=== PATIENT | female | born 1990 | race Caucasian/White ===

== ENCOUNTER 2017-12-28 00:31 | Day surgery (SDC) | payer SELFPAY ==
[2017-12-28] MEDS ORDERED: Ondansetron HCl/PF 4 MG/2 ML Vial IVP PRN (01:00)
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
== END 2017-12-28 01:25 | disposition left against medical advice (07) ==
LOC: L&D/OP 00:31
PROVIDERS: ATTEND Obstetrics & Gynecology
DX: O99.89 Other specified diseases and conditions complicating pregnancy, childbirth and the puerperium (principal); R10.9 Unspecified abdominal pain; Z53.21 Procedure and treatment not carried out due to patient leaving prior to being seen by health care provider; Z3A.00 Weeks of gestation of pregnancy not specified
CPT/HCPCS: 76815; 99282

== ENCOUNTER → 2018-01-20 | Day surgery (SDC) | payer SELFPAY ==
[2018-01-20 18:36] VITALS: BMI 27.4
== END ==
LOC: L&D/OP 17:34
PROVIDERS: ATTEND Obstetrics & Gynecology
DX: O99.89 Other specified diseases and conditions complicating pregnancy, childbirth and the puerperium (principal); K62.89 Other specified diseases of anus and rectum; Z79.899 Other long term (current) drug therapy; Z53.21 Procedure and treatment not carried out due to patient leaving prior to being seen by health care provider

== ENCOUNTER 2018-03-19 16:32 | Inpatient (IN) | payer SELFPAY ==
[2018-03-19 17:01] VITALS: BMI 30.2
[2018-03-19 19:28] LABS: Hemoglobin 11.6 g/dL (12.0-16.0); Mean Corpuscular HGB CONC 35.3 g/dL (32.0-36.0); Mean Corpuscular Hemoglobin 30.2 pg (27.0-31.0); Mean Corpuscular Volume 85.5 fl (81.0-99.0); Mean Platelet Volume 6.6 fL (7.4-10.4); Platelet Count 378 thou/uL (130-400); RBC Distribution Width 11.5 % (11.5-14.5); Red Blood Cell (RBC) Count 3.84 mill/uL (4.20-5.40); White Blood Cell (WBC) Count 10.4 thou/uL (4.8-10.8)
[2018-03-19 19:50] LABS: Acetaminophen Less than 6.0 mcg/mL (10.0-30.0); Alcohol Less than 10 mg/dL (Less than 10); Salicylate Less than 8.0 mg/dL (15.0-30.0)
[2018-03-19 20:08] LABS: HBSAB Concentration 0.39 mIU/mL; Hep B Surf AB Non-Reactive (NonReactive)
[2018-03-19 20:16] LABS: Syphilis Antibody Nonreactive (Nonreactive); Syphilis Antibody Index 0.04 S/CO (<1.00 Non-Reactive)
[2018-03-19 20:22] LABS: Bilirubin Negative (Negative); Blood, Urine Small (Negative); Clarity CLOUDY (Clear); Glucose, Urine (Dipstick) Negative (Negative); Leukocyte Large (Negative); Nitrite Positive (Negative); Protein, Urine (Dipstick) Trace mg/dL (Neg-Trace); Specific Gravity, Urine 1.024 (1.002-1.036); pH, Urine 6.5 (5.0-9.0)
[2018-03-19 20:24] LABS: Bacteria/HPF 4+ HPF (None Seen); Squamous Epithelial 0-3 HPF (0-3)
[2018-03-19 20:26] LABS: Pathc Cast-AUWi Flag 3.86 (0-2.49)
[2018-03-19 20:32] LABS: Amphetamine Detected (NotDetected); Barbiturates Screen Not Detected (NotDetected); Benzodiazepine Screen Not Detected (NotDetected); Cocaine Metabolite Screen Not Detected (NotDetected); Medtox Control Line Valid? VALID (VALID); Medtox Reader # READER 1; Methadone Not Detected (NotDetected); Methamphetamine Not Detected (NotDetected); Opiate Screen Not Detected (NotDetected); Oxycodone Screen Not Detected (NotDetected); Phencyclidine (PCP) Not Detected (NotDetected); THC/Cannabinoid Screen Not Detected (NotDetected); Tricyclic Screen Not Detected (NotDetected)
[2018-03-19 20:35] LABS: Trichomonas/HPF 1+ HPF (None Seen)
[2018-03-19 20:37] LABS: Hyaline Casts/LPF 0-3 HYALINE CAST LPF (0-3 Hyaline)
--- NOTE | 2018-03-19 20:41 | ULT ---
COMPLETE OB ULTRASOUND GREATER THAN 14 WEEKS. 03/19/18 HISTORY: 28-year-old female with history of uterine contractions. No care. Single viable intrauterine fetus is noted in cephalic presentation. Cervical length approximates 3.4 cm. Placenta is fundal. heart rate is 149 beats per minute. Amniotic fluid is within normal murray its with an SHADE of 10.7. ANATOMY: Visualized brain, four chamber heart, three vessel cord, stomach, bladder, kidneys, spine and e xtremity regions are unremarkable. BIOMETRY: BPD 7.1 cm - - 28 weeks, 4 days Head circumference 25.2 cm - - 27 weeks, 3 days Abdominal circumference 22.7 cm - - 28 weeks, 0 days Femur length 5.7 cm - - 29 weeks, 6 days IMPRESSION: Single viable intrauterine fetus at 28 weeks, 3 days with an EDC of 06/08/18. Estimated weight 1 254 grams. Normal amniotic fluid. POS: [facility]
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
== END 2018-03-19 21:05 | DRG 781 ==
LOC: L&D 16:32
PROVIDERS: ADMIT Obstetrics & Gynecology; ATTEND Obstetrics & Gynecology
DX: O98.313 Other infections with a predominantly sexual mode of transmission complicating pregnancy, third trimester (principal); O23.43 Unspecified infection of urinary tract in pregnancy, third trimester; Z88.0 Allergy status to penicillin; Z88.1 Allergy status to other antibiotic agents; Z3A.28 28 weeks gestation of pregnancy; A59.01 Trichomonal vulvovaginitis
CPT/HCPCS: 36415; 51701; 76805; 80306; 80307; 81003; 81015; 85027; 86706; 86762; 86780; 86850; 86870; 86886; 86900; 86901; 99285

== ENCOUNTER 2018-04-03 18:06 | Day surgery (SDC) | payer OTHER, SELFPAY ==
[2018-04-03 18:26] LABS: #Lymphocytes 2.1 thou/uL (1.20-3.40); #Monocytes 0.8 thou/uL (0.11-0.59); %Eosinophils 0.4 % (0.0-10.0); %Lymphocytes 19.4 % (21.0-51.0); %Neutrophils 73.2 % (42.0-75.0); Hemoglobin 11.1 g/dL (12.0-16.0); Mean Corpuscular HGB CONC 34.7 g/dL (32.0-36.0); Mean Corpuscular Hemoglobin 29.8 pg (27.0-31.0); Mean Corpuscular Volume 85.8 fl (81.0-99.0); Mean Platelet Volume 7.1 fL (7.4-10.4); Platelet Count 265 thou/uL (130-400); RBC Distribution Width 12.1 % (11.5-14.5); Red Blood Cell (RBC) Count 3.74 mill/uL (4.20-5.40); White Blood Cell (WBC) Count 10.9 thou/uL (4.8-10.8)
[2018-04-03 18:40] LABS: BHCG - Serum POSITIVE (NEGATIVE); Pregs Control Background? CLEAR/WHITE (CLR/WHITE); Pregs Control Bar Appear? YES (CONTROL BAR)
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
[2018-04-03 18:48] LABS: ALT (SGPT) 14 U/L (8-55); AST (SGOT) 15 U/L (5-34); Albumin 3.3 g/dL (3.5-5.0); Alkaline Phosphatase 70 U/L (40-150); Anion Gap 10 mmol/L (10-20); BUN (Urea Nitrogen) 7 mg/dL (7.0-18.7); Bilirubin, Total 0.5 mg/dL (0.2-1.2); CK (CPK) 75 U/L (29-168); Calc. Creatinine Clearance 0 mL/min (70-130); Calcium 9.3 mg/dL (7.8-10.44); Carbon Dioxide 23 mmol/L (22-29); Chloride 105 mmol/L (98-107); Estimated GFR-MDRD Greater than 90; Globulin 3.3 g/dL (2.4-3.5); Glucose 103 mg/dL (70-105); Magnesium 1.7 mg/dL (1.6-2.6); Potassium 3.9 mmol/L (3.5-5.1); Protein, Total 6.6 g/dL (6.0-8.3); Sodium 134 mmol/L (136-145)
--- NOTE | 2018-04-03 18:49 | PDOC.EVN ---
Event Note - Event Note Event Note: Past lab showed positive ampets...we will recollect urine. Needs GC/Chl, GBS. Dianelys send those now
[2018-04-03 18:50] VITALS: BP 112/54; TEMP 98.6; BMI 31.3
--- NOTE | 2018-04-03 19:13 | PDOC.EVN ---
Event Note - Event Note Event Note: Patient H&P revisited...very poor historian. Interviewed again with CHAY Ring in room. Patient is a Living5 (one IUFD at "8 mos"...born vaginal breech). No CS history. Patient does state Hx trich...confirmed on prior record review. Possible HX UTI. I will order cath UA as well
[2018-04-03 19:25] LABS: HIV (1/2) Antibody/Antigen Non-Reactive (NonReactive); HIV 1/2 INDEX 0.13 S/CO (<1.00)
[2018-04-03 19:32] LABS: Amphetamine Not Detected (NotDetected); Barbiturates Screen Not Detected (NotDetected); Benzodiazepine Screen Not Detected (NotDetected); Cocaine Metabolite Screen Not Detected (NotDetected); Medtox Control Line Valid? VALID (VALID); Medtox Reader # READER 4; Methadone Not Detected (NotDetected); Methamphetamine Not Detected (NotDetected); Opiate Screen Not Detected (NotDetected); Oxycodone Screen Not Detected (NotDetected); Phencyclidine (PCP) Not Detected (NotDetected); THC/Cannabinoid Screen Not Detected (NotDetected); Tricyclic Screen Not Detected (NotDetected)
--- NOTE | 2018-04-03 19:51 | PDOC.EVN ---
Event Note - Event Note Event Note: HIV negative...CMP OK, CBC ok. UTox negative. CX was closed per RN exam. FHTS Cat 1
[2018-04-03 19:53] LABS: Bacteria/HPF None Seen HPF (None Seen); Bilirubin Negative (Negative); Blood, Urine Negative (Negative); Clarity CLEAR (Clear); Glucose, Urine (Dipstick) Negative (Negative); Hyaline Casts/LPF 7-10 HYALINE CAST LPF (0-3 Hyaline); Leukocyte Trace (Negative); Nitrite Negative (Negative); Pathc Cast-AUWi Flag 2.47 (0-2.49); Protein, Urine (Dipstick) Negative (Neg-Trace); RBC/HPF None Seen HPF (0-3); Specific Gravity, Urine 1.008 (1.002-1.036); Urobilinogen 0.2 mg/dL (0.2-1.0); WBC/HPF None Seen HPF (0-3); pH, Urine 7.5 (5.0-9.0)
--- NOTE | 2018-04-03 20:05 | PDOC.EVN ---
Event Note - Event Note Event Note: Urine sample with no bacteruria, non significant findings. OK for release back to custody. No evidence Pyelo clinically, LOF, or true labor
[2018-04-05 11:34] LABS: Chlamydia by PCR DETECTED (NotDetected); GC by PCR DETECTED (NotDetected)
== END 2018-04-03 20:35 ==
LOC: ERS 18:06 → L&D/OP 18:21
PROVIDERS: ATTEND Obstetrics & Gynecology
DX: O47.03 False labor before 37 completed weeks of gestation, third trimester (principal); Z3A.36 36 weeks gestation of pregnancy; Z88.0 Allergy status to penicillin; Z88.1 Allergy status to other antibiotic agents; Z79.899 Other long term (current) drug therapy
CPT/HCPCS: 51701; 80053; 80306; 81003; 81015; 82550; 83735; 84703; 85025; 86850; 86870; 86886; 86900; 86901; 86922; 87077; 87081; 87186; 87389; 87491; 87591; 99284; 99285

== ENCOUNTER 2018-04-25 02:14 | Day surgery (SDC) | payer SELFPAY ==
[2018-04-25 03:07] VITALS: BP 133/76; TEMP 98
--- NOTE | 2018-04-25 04:28 | PDOC.LDHP ---
Addendum entered and electronically signed by Kaleigh Agarwal MD 04/25/18 06:20: Contacted [facility] and found out that there is a GC/CT that has been received from last week, but has not resulted. So will not repeat this at this time as the pt is not having vaginal discharge. Original Note: Labor and Delivery H&P Chief complaint: abdominal pain HPI: 31 y/o incarcerated (poor historian) @ 33.5 WGA by 28.3 wk sono presents due to abdominal pain, pelvic pressure, N/V, and constipation. The patient reports that over the past 2-3 days she has had nausea and vomiting and has had emesis after every meal. She has been unable to tolerate the warm water they have been giving her in [facility]. She reports constipation with her last BM being 3 days ago. She has been taking zofran for the nausea that hasn't been helping and then a stool softener for the constipation. She reports feeling lightheaded and dizzy over the past day or two, especially when she stands up. She reports that the pelvic pressure, back pain, and abdominal pain feels like labor to her. She feels like she is having contractions. She denies LOF, vaginal bleeding , vaginal d/c, and reports good movement. She denies headaches, vision changes, edema, dysuria. Current gestational age (weeks): 33 (33w5d) Due date: 06/08/18 Dating criteria: other (28w3d US) Grav: 9 (unsure) Para: 5 (unsure) OB History Details: Reports a pre-term that the did not live. Reports several SAB's Current complications: none Abnormal US findings: No Past Medical History: ADHD Current medications: pre- vitamins Previous surgical history: none Social history: tobacco use (1ppd for 15 years), drug use (marijuana and some other unknown substance early in ) - Physical Exam Vital signs reviewed and normal: yes General: NAD Heart: RRR Lungs: CTAB Abdomen: NTTP (L CVA tenderness, but pt reports chronic back pain in that area) Extremeties: no edema FHT: category 1, variability present [place] contractions every: none - Vaginal Exam cm dilated: 0 Effacement: 0% Station: -3 - OB Labs Blood type: A RH: negative Antibody Screen: positive HIV: negative RPR: negative HEPSAg: negative 1 hour GCT: unknown GBS: positive Urine drug screen: negative Rubella: immune - Assessment 1. Dehydration 2/2 vomiting 2. h/o GC/CT in - Plan -: 1. Dehydration 2/2 vomiting -1L LR bolus -Encourage PO hydration -Zofran prn nausea -Will check UA with possible CVA tenderness vs chronic back pain to r/o pyelo -Tylenol prn back pain 2. h/o GC/CT in -Will do ALEXA anticipate d/c after fluid bolus <Kaleigh Agarwal - Last Filed: 04/25/18 04:37> <Imelda Landon - Last Filed: 04/27/18 08:22> Allergies/Adverse Reactions: Allergies Allergy/AdvReac Type Severity Reaction Status Date / Time Cephalosporins Allergy Hives Verified 04/25/18 03:12 Penicillins Allergy Severe Verified 04/25/18 03:12 Hives Assessment/Plan: I personally evaluated the patient and discussed the management with Dr. Agarwal I agree with the History, Examination, Assessment and Plan documented above. <Imelda Landon - Last Filed: 04/27/18 08:22>
[2018-04-25] MEDS ORDERED: Lactated Ringer's 1,000 ML IV SCH (04:30)
[2018-04-25 05:41] LABS: Bilirubin Negative (Negative); Blood, Urine Negative (Negative); Clarity CLOUDY (Clear); Glucose, Urine (Dipstick) Negative (Negative); Leukocyte Trace (Negative); Nitrite Negative (Negative); Protein, Urine (Dipstick) Negative (Neg-Trace); Specific Gravity, Urine 1.009 (1.002-1.036); Urobilinogen 0.2 mg/dL (0.2-1.0)
[2018-04-25 05:44] LABS: Bacteria/HPF 2+ HPF (None Seen); Hyaline Casts/LPF 0-3 HYALINE CAST LPF (0-3 Hyaline); Pathc Cast-AUWi Flag 0.72 (0-2.49); RBC/HPF 0-3 HPF (0-3)
== END 2018-04-25 06:45 ==
LOC: L&D/OP 02:14
PROVIDERS: ATTEND Obstetrics & Gynecology
DX: O99.283 Endocrine, nutritional and metabolic diseases complicating pregnancy, third trimester (principal); O99.333 Smoking (tobacco) complicating pregnancy, third trimester; E86.0 Dehydration; Z88.1 Allergy status to other antibiotic agents; Z3A.33 33 weeks gestation of pregnancy
CPT/HCPCS: 81001; 87086; 96360; 96361; 99282

== ENCOUNTER 2018-05-23 18:23 | Day surgery (SDC) | payer SELFPAY ==
[2018-05-23 19:19] VITALS: BMI 35.9
[2018-05-23 19:29] VITALS: TEMP 97.9
[2018-05-23] MEDS ORDERED: Promethazine HCl 25 MG/ML VIAL IM/IV PRN (19:42)
[2018-05-23] MEDS ORDERED: Lactated Ringer's 1,000 ML IV SCH ×2 (19:45)
[2018-05-23 20:31] LABS: Bilirubin Negative (Negative); Blood, Urine Negative (Negative); Clarity CLEAR (Clear); Glucose, Urine (Dipstick) Negative (Negative); Leukocyte Negative (Negative); Nitrite Negative (Negative); Protein, Urine (Dipstick) Negative (Neg-Trace); Specific Gravity, Urine 1.011 (1.002-1.036); Urobilinogen 0.2 mg/dL (0.2-1.0)
[2018-05-23 20:32] LABS: #Basophils 0.1 thou/uL (0.0-0.2); #Lymphocytes 2.2 thou/uL (1.20-3.40); #Monocytes 0.7 thou/uL (0.11-0.59); #Neutrophils 6.5 thou/uL (1.40-6.50); %Basophils 0.5 % (0.0-1.0); %Eosinophils 0.3 % (0.0-10.0); %Lymphocytes 22.7 % (21.0-51.0); %Monocytes 7.7 % (0.0-10.0); %Neutrophils 68.8 % (42.0-75.0); Hemoglobin 11.8 g/dL (12.0-16.0); Mean Corpuscular HGB CONC 35.4 g/dL (32.0-36.0); Mean Corpuscular Hemoglobin 30.3 pg (27.0-31.0); Mean Corpuscular Volume 85.6 fL (78.0-98.0); Mean Platelet Volume 7.8 fL (7.4-10.4); Platelet Count 239 thou/uL (130-400); RBC Distribution Width 12.7 % (11.5-14.5); White Blood Cell (WBC) Count 9.5 thou/uL (4.8-10.8)
[2018-05-23 20:33] LABS: Bacteria/HPF None Seen HPF (None Seen); Hyaline Casts/LPF 4-6 HYALINE CAST LPF (0-3 Hyaline); Pathc Cast-AUWi Flag 1.16 (0-2.49); Squamous Epithelial 0-3 HPF (0-3); WBC/HPF None Seen HPF (0-3)
[2018-05-23 20:52] LABS: ALT (SGPT) 18 U/L (8-55); AST (SGOT) 21 U/L (5-34); Albumin 3.6 g/dL (3.5-5.0); Alkaline Phosphatase 136 U/L (40-150); Anion Gap 14 mmol/L (10-20); BUN (Urea Nitrogen) 9 mg/dL (7.0-18.7); Bilirubin, Total 0.5 mg/dL (0.2-1.2); Calc. Creatinine Clearance 225 mL/min (70-130); Carbon Dioxide 20 mmol/L (22-29); Chloride 105 mmol/L (98-107); Estimated GFR-MDRD Greater than 90; Globulin 3.5 g/dL (2.4-3.5); Glucose 87 mg/dL (70-105); Potassium 3.9 mmol/L (3.5-5.1); Protein, Total 7.1 g/dL (6.0-8.3); Sodium 135 mmol/L (136-145)
--- NOTE | 2018-05-23 22:28 | PRG ---
DATE OF SERVICE: 05/23/2018 PRESENTING COMPLAINT: Contractions at 37-38 weeks. HISTORY OF PRESENT ILLNESS: Ms. Santoro is a 31-year-old incarcerated G9, P5 at 37-38 weeks by a 28-w [place] ultrasound who sees the residents at the Clinic. She complains of back pain and pelvic pressure, which are the same complaints she has had on her last several visits to the emergency room. She denies rupture of membranes. She reports an active fetus. She has had mild nausea. She repor ts a history of dehydration during this . OB AND RATE REVIEWER HISTORY: SVDs. Blood type is A negative, antibody positive after RhoGAM. The patient is group B Strep positive on 04/03/2018. PAST MEDICAL HISTORY: Hepatitis C positive, not active at this time, ADHD. PAST SURGICAL HISTORY: Denies. ALLERGIES: PENICILLIN, CEPHALOSPORINS. MEDICATION: vitamins. SOCIAL HISTORY: Drug and alcohol use in the past. FAMILY HISTORY: Noncontributory. REVIEW OF SYSTEMS: Noncontributory. PHYSICAL EXAMINATION: GENERAL: White female in no acute distress. VITAL SIGNS: Blood pressure 118/72, temperature 98.6, respirations 18. HEENT: Within normal limits. LUNGS: Clear to auscultation bilaterally. HEART: Regular rhythm. ABDOMEN: Soft and nontender without palpable contractions. PELVIC: Vulva without lesions. Vagina without discharge. Cervix 25 and -2, cephalic, bag of water intact. LABORATORY DATA: Revealed hematocrit of 34%, normal white count, normal platelets, normal LFTs and c lear Fem cath urine. SUMMARY OF COURSE: The patient received p.o. hydration and food. She had a category 1 heart r ate tracing throughout with a reactive NST. She had occasional contractions every 10-15 minutes. IMPRESSION: Discomforts of at 37 weeks. No evidence of active labor. PLAN: Discharge back to [facility]. Keep scheduled followup at Clinic.
== END 2018-05-23 22:25 ==
LOC: L&D/OP 18:23
PROVIDERS: ATTEND Obstetrics & Gynecology
DX: O47.1 False labor at or after 37 completed weeks of gestation (principal); Z88.0 Allergy status to penicillin; Z3A.37 37 weeks gestation of pregnancy
CPT/HCPCS: 36415; 51701; 80053; 81001; 85025; 96372; 99283; J2550

== ENCOUNTER 2018-05-31 10:00 | Day surgery (SDC) | payer OTHER ==
[2018-05-31 10:40] VITALS: BP 145/61; TEMP 98.3; BMI 26.6
--- NOTE | 2018-05-31 10:43 | PDOC.LDHP ---
Labor and Delivery H&P Chief complaint: contractions, loss of fluid HPI: 31 year old @ 38.6 wks by 28.3 wk sono with MAUDE 06/08/2018 presents with a 2 day history of leaking of clear fluid. Patient has been through 1-2 pads over the last 2 days. She also endorses contractions which seem to be worse when up walking around. She states that yesterday the contractions were 12 minutes apart. Today they feel less than 5 minutes apart but are still irregular. Patient denies headache, fever, vaginal discharge, or vaginal bleeding. She endorses positive movement. ROS: General: Denies fever, chills, changes in appetite HEENT: Denies headache, vision changes, or sore throat Cardio: Denies chest pain or palpitations Resp: Denies shortness of breath or cough Public Health Officer: See HPI : Denies dysuria or odor to urine Current gestational age (weeks): 38 (38.6 wks) Due date: 06/08/18 Dating criteria: other (28.3 wk ultrasound) Grav: 8 Para: 5 OB History Details: 1. sIUP: 3T labs normal 2. Late to care 3. GBS positive: will need abx at delivery 4. Hx GC/CT with negative ALEXA 5. Hx of trichomonas with negative ALEXA 6. Amphetamine positive on UDS in early 7. UTI s/p treatment 8. Currently incarcerated 9. Hepatitis C positive: new diagnosis with negative test 1 year ago; Initial LFTs and bile acids normal. Viral load of 2,450,000. Hx of IVDA 10 Anti-D positive; may be false positive due to rhogam which was given; titer of 0 11. Grandmultiparity: will need uterotonics at delivery 12. Iron deficiency anemia: on iron supplementation 13. Rh negative: s/p rhogam Current complications: other (Hepatitis C) Abnormal US findings: No Past Medical History: 1. Asthma 2. Spinal stenosis diagnosed at age 16 Current medications: pre- vitamins, iron Social history: drug use - Physical Exam Vital signs reviewed and normal: yes General: NAD, resting Heart: RRR Lungs: CTAB Abdomen: gravid Extremeties: no edema FHT: category 1, variability present [place] contractions every: Irritability - OB Labs Blood type: A RH: negative HIV: negative RPR: negative HEPSAg: negative GBS: positive Urine drug screen: positive (amphetamines) Rubella: immune Additional Labs: Anti-D antibody screen initially positive; titers 0 - Assessment 31 year old @ 38.6 wks by 28.3 wk u/s with MAUDE 06/08/2018 presents with contractions and leaking of fluid Rule out SROM - No pooling on sterile speculum exam - Amnisure pending Fever blister on exam - Hx of fever blisters - Sterile speculum exam performed; no active lesions sIUP with contractions - cervical check 350/-3 at 11:15 am - Recheck in 2 hours - No contractions on monitor Late to care GBS positive: will need abx at delivery Hx GC/CT with negative ALEXA Hx of trichomonas with negative ALEXA Amphetamine positive on UDS in early UTI s/p treatment Currently incarcerated Hepatitis C positive: new diagnosis with negative test 1 year ago; Initial LFTs and bile acids normal. Viral load of 2,450,000. Hx of IVDA. Will recheck CMP today. Anti-D positive; may be false positive due to rhogam which was given; titer of 0 Grandmultiparity: will need uterotonics at delivery Iron deficiency anemia: on iron supplementation Rh negative: s/p rhogam Plan: If amnisure positive, will plan to admit patient. If amnisure negative, will check for cervical change in 2 hours. If change has been made, will admit patient to L&D. - Plan Plan: observation in L&D <Tara Lopez - Last Filed: 05/31/18 16:29> <Roni Ellison - Last Filed: 05/31/18 18:05> Allergies/Adverse Reactions: Allergies Allergy/AdvReac Type Severity Reaction Status Date / Time Cephalosporins Allergy Hives Verified 05/31/18 10:42 Penicillins Allergy Severe Verified 05/31/18 10:42 Hives Attending Addendum - Attending Addendum Date/Time: 05/31/18 180 I personally evaluated the patient and discussed the management with Dr. Lopez I agree with the History, Examination, Assessment and Plan documented above with any addition or exceptions noted below. Pt has been observed for 4hrs with no evidence of labor or rom. Pt is a grand multiparous female incarcerated and at risk for percipitous delivery. Pt will return tomorrow night at 10pm for elective induction <Roni Ellison - Last Filed: 05/31/18 18:05>
[2018-05-31 11:40] LABS: Amnisure Test No Membranes Rupture (No Rupture)
[2018-05-31 11:41] LABS: Amnisure Internal Control QC ACCEPTABLE (ACCEPTABLE)
[2018-05-31 13:39] LABS: ALT (SGPT) 16 U/L (8-55); AST (SGOT) 17 U/L (5-34); Albumin 3.5 g/dL (3.5-5.0); Alkaline Phosphatase 152 U/L (40-150); Anion Gap 12 mmol/L (10-20); BUN (Urea Nitrogen) 8 mg/dL (7.0-18.7); Bilirubin, Total 0.5 mg/dL (0.2-1.2); Calc. Creatinine Clearance 157 mL/min (70-130); Calcium 9.4 mg/dL (7.8-10.44); Carbon Dioxide 21 mmol/L (22-29); Chloride 105 mmol/L (98-107); Estimated GFR-MDRD Greater than 90; Globulin 3.4 g/dL (2.4-3.5); Glucose 111 mg/dL (70-105); Potassium 3.7 mmol/L (3.5-5.1); Protein, Total 6.9 g/dL (6.0-8.3); Sodium 134 mmol/L (136-145)
== END 2018-05-31 16:40 ==
LOC: L&D/OP 10:00
PROVIDERS: ATTEND Obstetrics & Gynecology
DX: O47.1 False labor at or after 37 completed weeks of gestation (principal); O99.013 Anemia complicating pregnancy, third trimester; D50.9 Iron deficiency anemia, unspecified; O99.513 Diseases of the respiratory system complicating pregnancy, third trimester; J45.909 Unspecified asthma, uncomplicated; Z3A.38 38 weeks gestation of pregnancy; Z88.0 Allergy status to penicillin; Z88.1 Allergy status to other antibiotic agents
CPT/HCPCS: 80053; 84112; 99285

== ENCOUNTER 2018-06-01 22:00 | Inpatient (IN) | payer OTHER, SELFPAY ==
--- NOTE | 2018-06-02 00:09 | PDOC.LDHP ---
Labor and Delivery H&P Chief complaint: scheduled induction HPI: This is a a 31 yo female at 39 by a 28.3 wk US who presents to L&D from [facility] for an induction of labor. She has a medical history of asthma, recent diagnosis of Hep C, anemia, and anti-D positive. She states she has headaches off and on, has spinal stenosis with neuropathic pain. She denies changes in vision, nausea/vomiting, abdominal pain, chest pain, and sob. She states she has felt the baby move. Pt. states she has a hx of large babies and quick progression of labor. Review of records showed patient received treatment for gonorrhea using rocephin with out difficulty or reaction. Patient was asked if she had reaction to medication and she denied reaction. Current gestational age (weeks): 39 Due date: 06/08/18 Dating criteria: other (third trimester US 28.3) Grav: 8 Para: 5 ([id number]) Abnormal US findings: No Past Medical History: Asthma Hep C Anti-D positive Anemia Current medications: pre- vitamins, iron, other (Effexor) Previous surgical history: dilation and curettage Social history: tobacco use (1/2 pack per day throughout ), drug use ( meth use during early 1st trimester) - Physical Exam Vital signs reviewed and normal: yes General: NAD, resting Heart: RRR Lungs: CTAB Abdomen: NTTP Extremeties: trace edema FHT: variability present - Vaginal Exam cm dilated: 3 (performed at clinic ) Effacement: 50% Station: -2 - OB Labs Blood type: A RH: negative Antibody Screen: positive HIV: negative RPR: negative HEPSAg: negative 1 hour GCT: negative GBS: positive (No sensitivities available) Urine drug screen: positive (During first trimester for meth) Rubella: immune - Assessment L&D Assessment: elective induction at term - Plan Plan: admit to L&D, labor augmentation if indicated (Pitocin), GBS antibiotic prophylaxis (culture sensitive to cephalosporins. documented history of tolerating cephalosporins with patient verification.), informed consent obtained , anesthesia consult for pain management <Serge Roman - Last Filed: 06/02/18 00:34> <Imelda Landon - Last Filed: 06/02/18 07:12> Allergies/Adverse Reactions: Allergies Allergy/AdvReac Type Severity Reaction Status Date / Time Penicillins Allergy Severe Verified 05/31/18 10:42 Hives Attending Addendum - Attending Addendum Date/Time: 06/02/18 0712 I personally evaluated the patient and discussed the management with Dr. Roman. I agree with the History, Examination, Assessment and Plan documented above. <Imelda Landon - Last Filed: 06/02/18 07:12>
[2018-06-02] MEDS ORDERED: Acetaminophen 500 MG TAB PO PRN (00:21)
[2018-06-02] MEDS ORDERED: Promethazine HCl 25 MG/ML VIAL IM PRN ×3 (00:21→12:17)
[2018-06-02 00:24] VITALS: BMI 39.1
[2018-06-02] MEDS ORDERED: CEFAZOLIN/Water 2 GM/20 ML SYRINGE SLOW IVP SCH (00:30)
[2018-06-02] MEDS ORDERED: Misoprostol 200 MCG TAB PR PRN (00:33)
[2018-06-02] MEDS ORDERED: Carboprost 250 MCG/ML AMP IM PRN (00:33)
[2018-06-02] MEDS ORDERED: Ibuprofen 800 MG TAB PO PRN (00:33)
[2018-06-02] MEDS ORDERED: Methylergonovine 0.2 MG/ML VIAL IM PRN (00:33)
[2018-06-02] MEDS ORDERED: NS / Oxytocin 40 units/1000ml 1,000 ML IV PRN (00:33)
[2018-06-02] MEDS ORDERED: Lidocaine 1% (PF) 30 ML VIAL SC PRN (00:33)
[2018-06-02 01:08] LABS: Hemoglobin 12.2 g/dL (12.0-16.0); Mean Corpuscular HGB CONC 34.7 g/dL (32.0-36.0); Mean Corpuscular Hemoglobin 29.9 pg (27.0-31.0); Mean Corpuscular Volume 86.3 fL (78.0-98.0); Mean Platelet Volume 8.4 fL (7.4-10.4); Platelet Count 224 thou/uL (130-400); RBC Distribution Width 12.4 % (11.5-14.5); Red Blood Cell (RBC) Count 4.09 mill/uL (4.20-5.40)
[2018-06-02 01:49] LABS: Hep B Surf Ag Non-Reactive S/CO (NonReactive)
[2018-06-02] MEDS: NS w/ Oxytocin 10 units 500 ML IV SCH ×3 (03:12→16:00)
[2018-06-02] MEDS: Ondansetron HCl/PF 4 MG/2 ML Vial IVP PRN ×3 (03:12→21:07)
[2018-06-02] MEDS: Lactated Ringer's 1,000 ML IV SCH ×3 (03:12→15:43)
[2018-06-02 05:47] LABS: Syphilis Antibody Nonreactive (Nonreactive); Syphilis Antibody Index 0.04 S/CO (<1.00 Non-Reactive)
[2018-06-02] MEDS ORDERED: CEFAZOLIN 1 GM VIAL SLOW IVP SCH (06:00)
[2018-06-02] MEDS ORDERED: Bupivacaine 0.75% 13.4 ML, fentaNYL Citrate/PF 400 MCG in Sodium Chloride 0.9% 78.6 ML EPIDURAL SCH (07:45)
[2018-06-02] MEDS ORDERED: DISCONTINUE ALL PREVIOUS NARCOTICS FS SCH (07:45)
[2018-06-02] MEDS ORDERED: Butorphanol Tartrate 1 MG/ML VIAL SLOW IVP PRN (08:50)
[2018-06-02] MEDS: CEFAZOLIN 1 GM in Sodium Chloride 0.9% 100 ML IVPB SCH ×2 (10:29→23:55)
--- NOTE | 2018-06-02 11:16 | PDOC.LDPN ---
Labor & Delivery Progress Note - Subjective Subjective: comfortable, painful contractions - Objective Vital signs reviewed and normal: yes General: NAD, resting Uterine fundus: non tender SVE: By Terra at 11:15 Dilation: 4 Effacement: 50% Station: -1 FHT: category 1, variability present [place] contractions every: q3-4 min AROM: meconium stained fluid - Assessment (1) Encounter for elective induction of labor Code(s): Z34.90 - ENCNTR FOR SUPRVSN OF NORMAL , UNSP, UNSP TRIMESTER Status: Acute (2) GBS (group B Streptococcus carrier), +RV culture, currently Code(s): O99.820 - STREPTOCOCCUS B CARRIER STATE COMPLICATING Status : Acute (3) Hepatitis C Code(s): B19.20 - UNSPECIFIED VIRAL HEPATITIS C WITHOUT HEPATIC COMA Status: Acute (4) Iron deficiency anemia during Code(s): O99.019 - ANEMIA COMPLICATING , UNSPECIFIED TRIMESTER; D50.9 - IRON DEFICIENCY ANEMIA, UNSPECIFIED Status: Acute (5) Substance abuse Code(s): F19.10 - OTHER PSYCHOACTIVE SUBSTANCE ABUSE, UNCOMPLICATED Status: Acute Plan: continue plan of care, labor augmentation -: Encounter for elective induction of labor - 31 year old @ 39.1 wks by 28.3 wk sono with MAUDE 06/08/2018 - Currently incarcerated; longterm patient - Continue current plan of care; labor augmentation with pitocin currently at 18 - q2h cervical checks - AROM at 11:15 AM; meconium fluid GBS positive - Penicillin allergy - On ancef Rh negative - s/p rhogam Hepatitis C Hx STD - s/p treatment Late to care Substance abuse history - Positive UDS (amphetamines); incarcerated since late in <Tara Lopez - Last Filed: 06/02/18 11:53> Attending Addendum - Attending Addendum Date/Time: 06/06/18 0843 I personally evaluated the patient and discussed the management with Dr. Lopez I agree with the History, Examination, Assessment and Plan documented above with any addition or exceptions noted below. <Roni Ellison - Last Filed: 06/06/18 08:43>
[2018-06-02] MEDS ORDERED: Eucerin (Mineral Oil/Petrolatum,White) 30 gm Jar TOP PRN ×2 (12:16→12:17)
[2018-06-02] MEDS ORDERED: Acetaminophen 325 MG TAB PO PRN ×2 (12:16→12:17)
[2018-06-02] MEDS ORDERED: Lactated Ringer's 500 ML IV PRN ×2 (12:16→12:17)
[2018-06-02] MEDS ORDERED: Naloxone HCl 0.4 mg/ml Vial IVP PRN ×4 (12:16→12:17)
[2018-06-02] MEDS ORDERED: Ondansetron HCl/PF 4 MG/2 ML Vial IVP PRN ×2 (12:16→12:17)
[2018-06-02] MEDS ORDERED: ePHEDrine/0.9% NaCl/PF SYRINGE 50 mg/10 ml SLOW IVP PRN ×2 (12:16→12:17)
[2018-06-02] MEDS ORDERED: diphenhydrAMINE 50 MG/ML VIAL IVP PRN ×2 (12:16→12:17)
[2018-06-02] MEDS ORDERED: Communication Order-Pharmacy FS SCH ×2 (12:30)
[2018-06-02] MEDS ORDERED: fentaNYL Citrate/PF 400 MCG, Bupivacaine 0.5% 20 ML in Sodium Chloride 0.9% 72 ML EPIDURAL SCH (12:30)
--- NOTE | 2018-06-02 14:41 | PDOC.LDPN ---
Labor & Delivery Progress Note - Subjective Subjective: comfortable - Objective Vital signs reviewed and normal: yes General: NAD, resting Uterine fundus: non tender Dilation: 6 Effacement: 75% Station: -1 FHT: category 1 (115/mod/+accels/no decels) [place] contractions every: 2-4min AROM: meconium stained fluid IUPC placed: yes - Assessment (1) Encounter for elective induction of labor Code(s): Z34.90 - ENCNTR FOR SUPRVSN OF NORMAL , UNSP, UNSP TRIMESTER Current Visit: Yes Status: Acute (2) GBS (group B Streptococcus carrier), +RV culture, currently Code(s): O99.820 - STREPTOCOCCUS B CARRIER STATE COMPLICATING Current Visit: Yes Status: Acute (3) Hepatitis C Code(s): B19.20 - UNSPECIFIED VIRAL HEPATITIS C WITHOUT HEPATIC COMA Current Visit: Yes Status: Acute (4) Iron deficiency anemia during Code(s): O99.019 - ANEMIA COMPLICATING , UNSPECIFIED TRIMESTER; D50.9 - IRON DEFICIENCY ANEMIA, UNSPECIFIED Current Visit: Yes Status: Acute (5) Substance abuse Code(s): F19.10 - OTHER PSYCHOACTIVE SUBSTANCE ABUSE, UNCOMPLICATED Current Visit: Yes Status: Acute Plan: continue plan of care, labor augmentation, pitocin for augmentation -: Ms Santoro is a 31yo @ 39wks by 28.3wk US presenting for Elective IOL 1. Encounter for elective induction of labor - 31 year old @ 39.1 wks by 28.3 wk sono with MAUDE 06/08/2018 - Currently incarcerated; retirement patient - Continue current plan of care; labor augmentation with pitocin currently at 24 - q2h cervical checks - AROM at 11:15 AM; meconium fluid 2. GBS positive - Penicillin allergy - Received first dose Cefazolin 1g @1030, next @1830 3. Rh negative - s/p rhogam 03/23/18 - Will need rhogam after delivery 4. Hepatitis C - IV drug use 5. Hx STD - s/p treatment 6. Late to care 7. Substance abuse history - Positive UDS (amphetamines); incarcerated since late in
--- NOTE | 2018-06-02 17:04 | PDOC.LDPN ---
Labor & Delivery Progress Note - Subjective Subjective: comfortable - Objective Vital signs reviewed and normal: yes General: NAD, resting Uterine fundus: non tender SVE: @[address] Castellanos Dilation: 7 Effacement: 90% Station: -1 FHT: category 1 (120/mod/+ accels/no decels) Flat contractions every: 4min AROM: meconium stained fluid IUPC placed: yes - Assessment (2) GBS (group B Streptococcus carrier), +RV culture, currently Code(s): O99.820 - STREPTOCOCCUS B CARRIER STATE COMPLICATING Current Visit: Yes Status: Acute (3) Hepatitis C Code(s): B19.20 - UNSPECIFIED VIRAL HEPATITIS C WITHOUT HEPATIC COMA Current Visit: Yes Status: Acute (4) Iron deficiency anemia during Code(s): O99.019 - ANEMIA COMPLICATING , UNSPECIFIED TRIMESTER; D50.9 - IRON DEFICIENCY ANEMIA, UNSPECIFIED Current Visit: Yes Status: Acute (5) Substance abuse Code(s): F19.10 - OTHER PSYCHOACTIVE SUBSTANCE ABUSE, UNCOMPLICATED Current Visit: Yes Status: Acute (6) Encounter for elective induction of labor Code(s): Z34.90 - ENCNTR FOR SUPRVSN OF NORMAL , UNSP, UNSP TRIMESTER Current Visit: Yes Status: Acute Plan: continue plan of care, labor augmentation, pitocin for augmentation -: Ms Santoro is a 31yo @ 39wks by 28.3wk US presenting for Elective IOL 1. Encounter for elective induction of labor - 31 year old @ 39.1 wks by 28.3 wk sono with MAUDE 06/08/2018 - Currently incarcerated; [facility]iary patient - Continue current plan of care; labor augmentation with pitocin currently at 24 - q2h cervical checks - AROM at 11:15 AM; meconium fluid 2. GBS positive - Penicillin allergy - Received first dose Cefazolin 1g @1030, next @1830 3. Rh negative - s/p rhogam 03/23/18 - Will need rhogam after delivery 4. Hepatitis C - IV drug use 5. Hx STD - s/p treatment 6. Late to care 7. Substance abuse history - Positive UDS (amphetamines); incarcerated since late in <Risa Castellanos - Last Filed: 06/02/18 18:46> Attending Addendum - Attending Addendum Date/Time: 06/04/18925 I personally evaluated the patient and discussed the management with Dr. Lopez I agree with the History, Examination, Assessment and Plan documented above with any addition or exceptions noted below. <Roni Ellison - Last Filed: 06/04/18 09:26>
[2018-06-02] MEDS ORDERED: Methylergonovine 0.2 MG/ML VIAL ONE (17:47)
[2018-06-02 18:35] LABS: Actual Bicarbonate (HCO3a) 23.7 mEq/L (22-28); Analyzer IN Cardio OR; Base Excess (BEa) -0.9 mEq/L (-2.0 to +3.0)
--- NOTE | 2018-06-02 18:45 | PDOC.OPDEL ---
Addendum entered and electronically signed by Risa Castellanos MD 06/02/18 19:09 : Patient with hx of hemorrhage and risk factors for hemorrhage. Given 800mg cytotec LA, 0.2 methergine post delivery. 800ml blood loss. Uterus was firm no active bleeding. Original Note: OB Operative/Delivery Note Delivery Dr/Surgeon: Emanuel Assist: Terra Lopez Pre-Delivery Diagnosis: elective induction Procedure/Post Delivery Dx: spontaneous vaginal delivery Weeks gestation: 39 (39.1) Anesthesia: epidural - Findings A Sex: female - 1 min: 4 - 5 min: 8 - Additional Findings/Plan Placenta delivered: spontaneous Repaired Obstetrical Laceration: none Estimated blood loss: 800mL Compilations/Other Findings: Delivering Physician: Dr. Castellanos, Dr. Lopez Attending: Dr. Ellison Procedure: Spontaneous Vaginal Delivery Anesthesia: epidural EBL: 800 ml Pre-op Diagnosis: 1. Elective induction of term labor 2. Anemia of 3. GBS+ 4. Hepatitis C 5. Rh negative 6. Hx of Polysubstance abuse 7. Hx of STI s/p treatment 8. Late to care 9. Incarcerated Post-op Diagnosis: 1. Term intrauterine , delivered 2. Same as above Indications: A 31y/o female presents for elective induction of labor at 39wks Delivery Note: This is 31yo F now @ 39.1wks who delivered a viable F at @1745 on 06/02/18. Following an uneventful antepartum course, a female was delivered over an intact perineum in the occipitoanterior position. Anterior Shoulder and then remainder of the body delivered. No nuchal cord, one body cord. The head was held down and mouth and nares were bulb suctioned. Cord clamped and cut and cord blood and cord gas collected. Placenta delivered intact with a 3 vessel cord noted. Fundal massage was performed and the fundus was firm. The cervix and vagina were inspected and found to be free of lacerations. required PPV for the first several minutes of life. Responded well to resuscitation. Not requiring any supplemental respiratory support. Was able to provide skin to skin for one hour following delivery. Infant went to nursery in good condition for routine care. Apgars were 4/8 at 1 & 5 minutes, respectively. Patient tolerated delivery well and went to after routine recovery/care. Post delivery plan: routine recovery <Risa Castellanos - Last Filed: 06/02/18 19:03> Attending Addendum - Attending Addendum Date/Time: 06/04/1827 I personally evaluated the patient and discussed the management with Dr. Castellanos. I was present for the entire 2nd and 3rd stages of labor. I agree with the History, Examination, Assessment and Plan documented above with any addition or exceptions noted below. <Roni Ellison - Last Filed: 06/04/18 09:28>
[2018-06-02 19:28] LABS: Amphetamine Not Detected (NotDetected); Barbiturates Screen Not Detected (NotDetected); Benzodiazepine Screen Not Detected (NotDetected); Cocaine Metabolite Screen Not Detected (NotDetected); Medtox Control Line Valid? VALID (VALID); Medtox Reader # READER 1; Methadone Not Detected (NotDetected); Methamphetamine Not Detected (NotDetected); Opiate Screen Not Detected (NotDetected); Oxycodone Screen Not Detected (NotDetected); Phencyclidine (PCP) Not Detected (NotDetected); THC/Cannabinoid Screen Not Detected (NotDetected); Tricyclic Screen Not Detected (NotDetected)
[2018-06-02] MEDS ORDERED: NS / Oxytocin 40 units/1000ml 1,000 ML IV SCH (19:58)
[2018-06-02] MEDS ORDERED: Bisacodyl 10 MG SUPP PR PRN (19:58)
[2018-06-02] MEDS ORDERED: Preparation H Ointment 28 GM TUBE PR PRN (19:58)
[2018-06-02] MEDS ORDERED: Milk Of Magnesia 30 ML UDCUP PO PRN (19:58)
[2018-06-02] MEDS ORDERED: Lidocaine 2% MPF 10 ML AMP (For Epidural Use) ONE (20:00)
[2018-06-02] MEDS ORDERED: Bupivacaine/Epinephrine 0.25% 30 ML VIAL ONE (20:00)
[2018-06-02] MEDS ORDERED: Adacel (T-DAP) 0.5 ML VIAL IM ONE (20:30)
[2018-06-02] MEDS: Docusate Calcium (SURFAK) 240 MG CAP PO SCH (21:07)
[2018-06-02] MEDS ORDERED: Ibuprofen 800 MG TAB PO SCH ×2 (22:00→23:15)
--- NOTE | 2018-06-02 22:27 | PDOC.EVN ---
Event Note - Event Note Event Note: Pt. is still complaining of moderate to severe crampy pain. She states she is having headaches off and on. She states she is passing some clots on the toilet. Nursing states her bleeding is decreasing. She is given 15mg toradol IVP for her pain at this time. Denies dyspnea and chest pain. She states her nausea is improved with phenergan.
[2018-06-03] MEDS ORDERED: Ketorolac Tromethamine 30 MG/ML VIAL IVP PRN (03:00)
[2018-06-03 05:45] LABS: Hemoglobin 10.4 g/dL (12.0-16.0); Mean Corpuscular HGB CONC 33.2 g/dL (32.0-36.0); Mean Corpuscular Volume 87.4 fL (78.0-98.0); Mean Platelet Volume 8.5 fL (7.4-10.4); Platelet Count 211 thou/uL (130-400); RBC Distribution Width 12.4 % (11.5-14.5); Red Blood Cell (RBC) Count 3.58 mill/uL (4.20-5.40); White Blood Cell (WBC) Count 9.7 thou/uL (4.8-10.8)
--- NOTE | 2018-06-03 05:55 | PDOC.PP ---
Post Progress Note Post Day #: 1 Subjective: Ms Santoro is a 31yo now who delivered a TAGA female on 06/02/18 by @ 39wks by 28.3wk US. Pain is well controlled with PRN toradol. When standing up she had a pain shoot from her back to her head with some vision changes, she continues to have a headache. Had nausea overnight that has resolved. Has went through 4 pads since delivery. Nursing states her bleeding is decreasing. She has not passed gas or ambulated. She is urinating on her own, post removed yesterday. PO intake tolerated: yes Flatus: no Ambulation: no Vital Signs (12 hours) Temp Pulse Resp BP Pulse Ox 06/03/18 04:00 98.3 F 82 16 127/61 06/02/18 23:15 97.5 F L 75 16 117/62 06/02/18 22:15 98.0 F 85 16 129/61 06/02/18 21:15 88 16 134/72 06/02/18 20:40 96.7 F L 89 18 140/63 98 Weight Weight 113.398 kg - Physical Examination General: NAD Cardiovascular: RRR Respiratory: clear to auscultation bilaterally Abdominal: + bowel sounds, lochia, appropriately TTP Psychiatric: A&Ox3, normal affect Result Diagrams: 06/03/18 04:52 Additional Labs: Post Labs Blood Type A NEGATIVE 06/02/18 00:51 Hep Bs Antigen Non-Reactive S/CO (NonReactive) 06/02/18 00:51 (1) care and examination Code(s): Z39.2 - ENCOUNTER FOR ROUTINE FOLLOW-UP Status: Acute (2) GBS (group B Streptococcus carrier), +RV culture, currently Code(s): O99.820 - STREPTOCOCCUS B CARRIER STATE COMPLICATING Status : Acute (3) Hepatitis C Code(s): B19.20 - UNSPECIFIED VIRAL HEPATITIS C WITHOUT HEPATIC COMA Status: Acute (4) Iron deficiency anemia during Code(s): O99.019 - ANEMIA COMPLICATING , UNSPECIFIED TRIMESTER; D50.9 - IRON DEFICIENCY ANEMIA, UNSPECIFIED Status: Acute (5) Substance abuse Code(s): F19.10 - OTHER PSYCHOACTIVE SUBSTANCE ABUSE, UNCOMPLICATED Status: Acute - Assessment/Plan Ms Santoro is a 31yo now who delivered a TAGA female on 06/02/18 by @ 39wks by 28.3wk US 1. Routine PP care - Pain adequately controlled with PRN toradol 15mg - Tolerating PO, with some nausea last night - Encourage amubulation today - VS stable - Continue routine pp care 2. Hemorrhage - EBL 800 - Hgb: 12.2->10.4 3. GBS positive - adequately treated - Penicillin allergy, s/p Cefazolin 1g x2 4. Rh negative - s/p rhogam 03/23/18 - Post delivery rhogam given 5. Hepatitis C - IV drug use 6. Hx STD - s/p treatment 7. Late to care 8. Substance abuse history - Positive UDS (amphetamines); incarcerated since late in Dispo: Monitor another 24hrs and plan to d/c if stable <Risa Castellanos - Last Filed: 06/03/18 09:38> Vital Signs (12 hours) Temp Pulse Resp BP 06/04/18 08:33 97.6 F 73 20 110/56 L Weight Weight 250 lb Result Diagrams: 06/03/18 04:52 Additional Labs: Post Labs Blood Type A NEGATIVE 06/02/18 00:51 Hep Bs Antigen Non-Reactive S/CO (NonReactive) 06/02/18 00:51 <Roni Ellison - Last Filed: 06/04/18 09:38> Attending Addendum - Attending Addendum Date/Time: 06/04/1837 I personally evaluated the patient and discussed the management with Dr. Castellanos I agree with the History, Examination, Assessment and Plan documented above with any addition or exceptions noted below. <Roni Ellison - Last Filed: 06/04/18 09:38>
[2018-06-03] MEDS: Ibuprofen 800 MG TAB PO SCH ×3 (06:11→21:43)
[2018-06-03] MEDS ORDERED: Sodium Chloride 0.9% 10 ML ONE (08:20)
[2018-06-03] MEDS: Ondansetron HCl/PF 4 MG/2 ML Vial IVP PRN (08:29)
[2018-06-03] MEDS: Prenatal Vitamin 1 TAB PO SCH (08:29)
[2018-06-03] MEDS: Docusate Calcium (SURFAK) 240 MG CAP PO SCH ×2 (08:29→21:43)
[2018-06-03] MEDS: Ferrous Sulfate 325 MG TAB PO SCH ×2 (08:30→17:09)
[2018-06-03] MEDS: Ondansetron ODT 4 MG TAB PO PRN (21:56)
--- NOTE | 2018-06-04 06:09 | PDOC.PP ---
Post Progress Note Post Day #: 2 Subjective: Ms Santoro is a 31yo now who delivered a TAGA female on 06/02/18 by @ 39wks by 28.3wk US. Pain is well controlled with scheduled motrin. Expresses concern over having Hep C treated. Also concerned about stopping breast milk production. Reports having a severe TARANGO all day yesterday as a result of crying. Denies current TARANGO, SOB, nausea, or vision changes. Ambulating, urinating, tolerating PO, and passing gas. PO intake tolerated: yes Flatus: yes Ambulation: yes Vital Signs (12 hours) Temp Pulse Resp BP 06/03/18 20:19 98.3 F 83 20 114/57 L Weight Weight 113.398 kg - Physical Examination General: NAD Cardiovascular: RRR Respiratory: clear to auscultation bilaterally Abdominal: + bowel sounds, lochia, appropriately TTP Psychiatric: A&Ox3, normal affect Result Diagrams: 06/03/18 04:52 Additional Labs: Post Labs Blood Type A NEGATIVE 06/02/18 00:51 Hep Bs Antigen Non-Reactive S/CO (NonReactive) 06/02/18 00:51 (1) care and examination Code(s): Z39.2 - ENCOUNTER FOR ROUTINE FOLLOW-UP Status: Acute (2) GBS (group B Streptococcus carrier), +RV culture, currently Code(s): O99.820 - STREPTOCOCCUS B CARRIER STATE COMPLICATING Status : Acute (3) Hepatitis C Code(s): B19.20 - UNSPECIFIED VIRAL HEPATITIS C WITHOUT HEPATIC COMA Status: Acute (4) Iron deficiency anemia during Code(s): O99.019 - ANEMIA COMPLICATING , UNSPECIFIED TRIMESTER; D50.9 - IRON DEFICIENCY ANEMIA, UNSPECIFIED Status: Acute (5) Substance abuse Code(s): F19.10 - OTHER PSYCHOACTIVE SUBSTANCE ABUSE, UNCOMPLICATED Status: Acute - Assessment/Plan Ms Santoro is a 31yo now who delivered a TAGA female on 06/02/18 by @ 39wks by 28.3wk US 1. Routine PP care - Pain adequately controlled with scheduled motrin. - Tolerating PO - VS stable - Continue routine pp care 2. Hx of Hemorrhage - EBL 800 - Hgb: 12.2->10.4 3. Depression - Previously on Effexor 37.5mg - Restart Effexor 37.5mg 4. GBS positive - adequately treated - Penicillin allergy, s/p Cefazolin 1g x2 5. Rh negative - s/p rhogam 03/23/18 - Post delivery rhogam given 6. Hepatitis C - IV drug use - Would need to see ID for evaluation for treatment - Check to see if viral load has been tested 7. Hx G/c during - s/p treatment 8. Late to care 9. Substance abuse history - Positive UDS (amphetamines); incarcerated since late in - UDS neg at admission 10. Baby being adopted by Aunt Dispo: Plan to d/c to snf today if stable <Risa Castellanos - Last Filed: 06/04/18 10:22> Weight Weight 250 lb Result Diagrams: 06/03/18 04:52 Additional Labs: Post Labs Blood Type A NEGATIVE 06/02/18 00:51 Hep Bs Antigen Non-Reactive S/CO (NonReactive) 06/02/18 00:51 - Assessment/Plan Faculty note Attestation, written 06/05/18 for 06/04/18 resident note: I saw this patient at bedside myself. Agree with this working plan of care. Able to be released back to custody. <Iraj Mitchell - Last Filed: 06/05/18 08:52>
[2018-06-04] MEDS: Ibuprofen 800 MG TAB PO SCH ×2 (06:12→15:13)
--- NOTE | 2018-06-04 07:23 | PDOC.EVN ---
Event Note - Event Note Event Note: DISCHARGE NOTE: Procedure: Labor induction Patient is in police custody Admit date: 06/01/18 Discharge date: 06/04/18 The patient was scheduled for an elective induction by DR Ellison. Hx Hep C, and neuropathic pain. She progressed to on 06/02/18. I evaluated the patient on day of discharge: s. No complaints. States she was on low dose Effexor and desired her morning dose today (I have ordered it). States has meds at home/while in custody. O. VSS afebrile NAD Ut firm, NT no VB Assessment and plan: PPD2, ok for discharge. No evidence complication. HCT 31 RX for motrin in chart. I have ordered her AM dose of effexor today. Awaiting child paperwork.
[2018-06-04 08:33] VITALS: BP 110/56; TEMP 97.6
[2018-06-04] MEDS ORDERED: Venlafaxine XR 37.5 MG CAP PO SCH (09:00)
[2018-06-04] MEDS: Docusate Calcium (SURFAK) 240 MG CAP PO SCH (09:48)
[2018-06-04] MEDS: Ferrous Sulfate 325 MG TAB PO SCH ×2 (09:48→18:13)
[2018-06-04] MEDS: Prenatal Vitamin 1 TAB PO SCH (09:48)
[2018-06-04] MEDS: Ondansetron ODT 4 MG TAB PO PRN (13:40)
[2018-06-04 14:23] LABS: HIV (1/2) Antibody/Antigen Non-Reactive (NonReactive)
== END 2018-06-04 20:23 | DRG 774 ==
LOC: L&D 22:45 → 3SW 06-02 22:12
PROVIDERS: ADMIT Obstetrics & Gynecology; ATTEND Obstetrics & Gynecology
PROC: 10907ZC Drainage of Amniotic Fluid, Therapeutic from Products of Conception, Via Natural or Artificial Opening (ICD-10-PCS; 2018-06-01)
PROC: 10E0XZZ Delivery of Products of Conception, External Approach (ICD-10-PCS; principal; 2018-06-02)
PROC: 10H07YZ Insertion of Other Device into Products of Conception, Via Natural or Artificial Opening (ICD-10-PCS; 2018-06-02)
DX: O99.824 Streptococcus B carrier state complicating childbirth (principal); O98.42 Viral hepatitis complicating childbirth; B19.20 Unspecified viral hepatitis C without hepatic coma; O99.52 Diseases of the respiratory system complicating childbirth; J45.909 Unspecified asthma, uncomplicated; O99.334 Smoking (tobacco) complicating childbirth; O72.1 Other immediate postpartum hemorrhage; D50.9 Iron deficiency anemia, unspecified; O99.02 Anemia complicating childbirth; Z88.0 Allergy status to penicillin; Z3A.39 39 weeks gestation of pregnancy; Z37.0 Single live birth
CPT/HCPCS: 36415; 51702; 80306; 82805; 85027; 85461; 86780; 86850; 86870; 86886; 86900; 86901; 86922; 87340; 87389; 90384; 96372; A4216; J0595; J0690; J1885; J2001; J2210; J2405; J3010; J7050; Q0162